=== PATIENT | female | born 2000 | race Two or more races ===

== ENCOUNTER → 2025-01-20 | Outpatient (CLI) | payer MEDICAID, SELFPAY ==
--- NOTE | 2025-01-20 09:44 | XR_ITS ---
Examination: Abdomen AP single view Technique: AP portable supine abdomen, single view Exam date and time: January 20, 2025 1114 hours INDICATIONS: Abdominal pain 2 weeks history constipation FINDINGS: Enlargement of stool throughout the colon No obstruction No free air IMPRESSION: Large amounts of stool throughout the colon
== END | disposition home or self-care (01) ==
PROVIDERS: PCP Physician Assistant; Referring Provider Physician Assistant; Visit Provider Physician Assistant
DX: K59.00 Constipation, unspecified (principal)
CPT/HCPCS: 74018